=== PATIENT | male | born 1945 | race Caucasian/White ===

== ENCOUNTER 2020-01-22 06:40 | Inpatient (IN) | payer OTHER ==
[~2020-01-22] VITALS: Ht 177.8 cm; Wt 82.6 kg
[~2020-01-22 06:40] MED LIST: ASA81BEC PO; BACTRIM DS TAB1 EACH PO; CARVEDILOL12.5 MG PO; DOXYCYCLINE 10100 MG PO; FISH OIL 1,0001 EAC9 PO; FUROSEMIDE 40 M40 MG PO; GLUCOPHAGE1000 MG PO; IRON325 PO; LANTUS SUBQ; LIPITOR40 MG PO; MULTIVITAMINS PO; NEURONTIN100 MG PO; NORVASC5 MG PO; NOVOLOG100 UNIT/1 SUBQ; PLAVIX 75 MG TA75 MG PO; POTASSIUM CHLO10 ME1 PO; PROBIOTIC1 EAC7 PO
[2020-01-22 07:00] VITALS: BP 145/64
[2020-01-22 07:29] LABS: ABSOLUTE EOSINOPHILS 0.3 thou/uL (0.0-0.7); ABSOLUTE LYMPHOCYTES 1.3 thou/uL (0.8-5.3); ABSOLUTE MONOCYTES 1.1 thou/uL (0.0-1.2); ABSOLUTE NEUTROPHILS 6.9 thou/uL (1.6-8.1); BASOPHILS 0.1 %; EOSINOPHILS 3.4 %; HEMATOCRIT 32.9 % (42.0-52.0); HEMOGLOBIN 10.8 gm/dL (14.0-18.0); LYMPHOCYTES 13.9 %; MCHC 32.8 g/dL (28.0-37.0); MCV 85.5 fL (80.0-100.0); MONOCYTES 11.3 %; MPV 8.3 fl. (7.2-11.1); NUCLEATED RBCS 0 /100WBC; PLATELET COUNT* 307 thou/uL (150-400); POLYS 71.3 %; RBC 3.85 mil/uL (4.50-6.00); WBC 9.6 thou/uL (4.0-11.0)
[2020-01-22 07:37] LABS: CALCIUM 8.8 mg/dL (8.5-10.1)
--- NOTE | 2020-01-22 10:56 | OP ---
[facility] [address] [place] [address] OPERATIVE REPORT Name: SUKI LUBIN Samaria Room: [address] IN .R.#: [id number] Admission: 01/22/20 Attend Phys: Dulce Maria Fairchild Discharge: Date of : 43 Report #: [id number] THIS REPORT FOR: //name// cc: Jefry Lambert MD, John MD ~ THIS REPORT FOR: //name// CC: Jefry Dykes DATE OF SERVICE: 01/22/2020 PREOPERATIVE DIAGNOSIS: Chronic osteomyelitis, right foot in need a below-knee amputation. POSTOPERATIVE DIAGNOSIS: Chronic osteomyelitis, right foot in need a below-knee amputation. PROCEDURE: Right below-knee amputation. COMPLICATIONS: None. ESTIMATED BLOOD LOSS: 200 mL. SPECIMEN: Includes right below-knee amputation. SURGEON: Shayne Khan MD JEWELRY DESIGNER: PENG Dillon. COMPLICATIONS: None. INDICATIONS FOR PROCEDURE: The patient is a very pleasant 74-year-old white male who has diabetes. He has nonhealing diabetic foot ulcer of his right foot with now osteomyelitis of the calcaneus bone. His foot was no longer salvageable. We plan an urgent right below-knee amputation. Informed consent was obtained from the patient with risks including but not limited to bleeding, infection, need for further surgery, pain, , heart attack, stroke, higher amputation. The patient understood these risks and was agreeable to proceed. DESCRIPTION OF PROCEDURE: The patient was taken to the OR and placed in supine position. After adequate general anesthesia was initiated, his right leg was prepped and draped in usual sterile fashion. Timeout was performed. I created a transverse incision across the tibia just one handbreadth below the tibial tuberosity. Sharp and blunt dissections were carried down the tibia [place] [address] OPERATIVE REPORT Name: SUKI LUBIN Room: [address] IN [facility]#: [id number] Admission: 01/22/20 Attend Phys: Dulce Maria Fairchild Discharge: Date of : 43 Report #: [id number] These were divided with a bone saw. I then used an amputation knife to create a posterior flap with the calf muscle. Specimen was removed off the field. Bleeding was controlled with interrupted 2-0 silk suture as well as electrocautery. I irrigated with 1 liter of antibiotic saline. I closed the flap anteriorly using interrupted 2-0 Vicryl, 3-0 Vicryl and bakari for the skin. Incision was dressed with Prevena wound VAC. The patient was taken alert and awake to recovery room in good condition. All needle and instrument counts were correct. <ELECTRONICALLY SIGNED> By: Shayne Khan MD 01/22/20 1056 1004 101MD ca Gonzalez
[2020-01-22 11:30] VITALS: BP 133/48
--- NOTE | 2020-01-22 17:31 | EKG ---
[place] [address] ELECTROCARDIOGRAM REPORT Name: JESUSSUKI FONG Room: [address] IN [facility].#: [id number] Admission: 01/22/20 Attend Phys: Martin Dykes Discharge: Date of : 43 Date of Service: 01/22/20727 Report #: [id number] THIS REPORT FOR: //name// [facility] Test Date: 2020-01-22 Test Time: 07:28:18 Pat Name: SUKI LUBIN Department: Room: [facility] Gender: M Construction Checker: : 1945 Requested By: Shayne Khan Order Number: [id number] Sheila MD: Master Jaquez Measurements Intervals [place] Rate: 74 P: 38 OH: 147 QRS: 59 QRSD: 115 T: 261 QT: 363 QTc: 403 Interpretive Statements Sinus rhythm Nonspecific intraventricular conduction delay Early repolarization No previous ECG available for comparison Electronically Signed On 01-22-2020 17:29:30 CDT by Master Jaquez [email or web address] <ELECTRONICALLY SIGNED> By: Master Jaquez MD, [facility] 01/22/20 1729 7 7 Master Jaquez MD, FACC /EPI
--- NOTE | 2020-01-22 18:01 | NUR ---
PATIENT RESTING IN BED. RIGHT LEG ELEVATED ON PILLOW. DRESSING TO RIGHT LEG CLEAN, DRY AND INTACT WITH KNEE IMMOBILIZER ON. PATIENT HAS COMPLAINTS OF MINIMAL PAIN, HYDROCODONE GIVEN X 1. PATIENT HAS GOOD APPETITE. PATIENT DENIES ANY NEEDS AT THIS TIME. CALL LIGHT WITHIN REACH.
[2020-01-22 20:00] VITALS: BP 122/44
[2020-01-23 02:10] LABS: ABSOLUTE EOSINOPHILS 0.2 thou/uL (0.0-0.7); ABSOLUTE LYMPHOCYTES 1.2 thou/uL (0.8-5.3); ABSOLUTE MONOCYTES 1.1 thou/uL (0.0-1.2); ABSOLUTE NEUTROPHILS 8.3 thou/uL (1.6-8.1); BASOPHILS 0.4 %; EOSINOPHILS 1.9 %; HEMATOCRIT 26.4 % (42.0-52.0); LYMPHOCYTES 11.1 %; MCHC 32.6 g/dL (28.0-37.0); MCV 85.7 fL (80.0-100.0); MONOCYTES 9.8 %; MPV 8.2 fl. (7.2-11.1); NUCLEATED RBCS 0 /100WBC; PLATELET COUNT* 240 thou/uL (150-400); POLYS 76.8 %; RBC 3.08 mil/uL (4.50-6.00); RDW-CV 19.4 % (10.5-14.5); WBC 10.8 thou/uL (4.0-11.0)
[2020-01-23 02:15] LABS: HEMOGLOBIN 8.6 gm/dL (14.0-18.0)
[2020-01-23 02:20] VITALS: BP 146/52
[2020-01-23 02:21] LABS: CALCIUM 8.2 mg/dL (8.5-10.1); POTASSIUM 4.3 mmol/L (3.5-5.1)
--- NOTE | 2020-01-23 04:44 | NUR ---
PT A&O, VSS ON 1-2L O2 BY GA. MEDS GIVEN ORDERED. DRESSING C/D/I. PAIN MANAGED WITH NORCO. PT COULD NOT VOID, 821ML ON BLADDER SCAN. COHEN CATH PLACED. RT LEG ELEVATED ON PILLOW. KNEE IMMOBILIZER, WOUND VAC IN PLACE. HOURLY ROUNDINGS COMPLETED. WILL CONTINUE TO MONITOR.
[2020-01-23 06:00] VITALS: BP 135/46
[2020-01-23 07:30] VITALS: BP 138/51
[2020-01-23 16:00] VITALS: BP 116/58
--- NOTE | 2020-01-23 16:06 | NUR ---
PATIENT GIVEN PRN HYDROCODONE FOR RIGHT LEG PAIN, GOOD RELIEF NOTED. IV REMAINS SL, FLUSHING WITHOUT DIFFICULTY. PATIENT C/O BEING SWEATY THIS AFTERNOON AT APPROX 1400, BS AT THAT TIME 239 AND TEMP 99.3. PATIENT CHECKED ON AGAIN SOON AFTER AND TEMP NOTED TO BE 98.4 AND PATIENT STATED HE WAS NO LONGER SWEATY AND WAS FEELING FINE. INSULIN GIVEN WITH MEALS ORDERED. PT TO WORK WITH PATIENT TOMORROW. WILL ATTEMPT TO HELP PATIENT INTO CHAIR FOR DINNER. COHEN DRAINING LARGE AMOUNTS OF CLEAR YELLOW URINE. RIGHT LEG DRESSING D/I AND WOUND VAC REMAINS IN PLACE. REHAB CONSULT PLACED.
--- NOTE | 2020-01-23 16:36 | NUR ---
SW called pt to complete initial assessment, introduce self, and SW role. Pt alert, oriented, pleasant, talkative. Pt lives at home with his in a split entry home. Pt has hx of inpt rehab at [facility] and says he learned how to go up and down stairs on his bottom. pt has 2 wc, 2 walkers, crutches and a shower chair and grab bars. Pt planning for [facility]pt rehab at [facility] and would prefer inpt rehab at [facility]. Pt said he wasn't able to participate in therapies yet because of issues with catheterization but understands that he will work with therapies and will need to be evaluated to determine if pt is able to be accepted to inpt rehab. Pt has supportive family. SW to continue to follow to assist with safe dc planning.
[2020-01-23 20:00] VITALS: BP 133/59
[2020-01-24 03:00] VITALS: BP 108/59
--- NOTE | 2020-01-24 04:33 | NUR ---
PT A&O, ON RA. DRESSING TO RT STUMP INTACT. WOUND VAC IN PLACE. MEDS GIVEN ORDERED. PAIN WELL CONTROLLED WITH NORCO. PT SLEEPING THROUGH THE NIGHT. COHEN IN PLACE. HOURLY ROUNDINGS COMPLETED. WILL CONTINUE TO MONITOR.
[2020-01-24 07:30] VITALS: BP 122/64
[2020-01-24] MEDS ORDERED: HYDROCODON-ACE1 EAC7 PO (11:14)
--- NOTE | 2020-01-24 14:08 | PATH ---
[address] [address] PATHOLOGY RPT PROCEDURE Name: SUKI LUBIN Room: [address] IN M.R.#: [id number] Admission: 01/22/20 Date of : 43 Discharge: Report #: [id number] Path Case #: [id number] [facility] Accession Number: [id number] . 01 Material submitted: . leg - RIGHT BELOW THE KNEE LEG. Modifiers: right . 01 Clinical history: . Atherosclerosis right leg . 02 Diagnosis: Right below knee leg: - Benign right lower leg with evidence of prior transmetatarsal amputations of all five toes and non-specific ulceration at distal/plantar aspect with underlying bone showing osteomyelitis and reparative changes. - Severe calcifying arteriosclerosis of anterior and posterior tibial arteries. (WINNIE/db; 01/24/2020) LBQ 01/24/2020 1223 Local . 02 Electronically signed: . Jesus Manuel Rincon MD, Pathologist NPI- [id number] . 01 Gross description: . The specimen is received fresh in a red biohazard bag, labeled "Suki Lubin, right below knee leg". Received is a right [id number] amputation measuring 14.2 cm from heel to distal foot stump, 15.0 cm from heel to skin margin, 29.3 cm from heel to fibular bone margin, and 31.0 cm from heel to tibial bone margin. The skin and soft tissue margins appear viable. All five toes are absent due to a prior transmetatarsal amputation. At the distal aspect of the foot and continuing onto the plantar aspect, there is a well circumscribed, irregular in contour, partially crusted and yellow-shelton to pink-red lesion measuring 12.8 x 10.4 cm. Sectioning through the anterior and posterior tibial vasculatures reveals pinpoint to slightly patent lumens with a slight amount of calcification identified. The specimen is submitted representatively as follows: . A1 skin and soft tissue margin A2 medical field representative section of bone underlying pink-right aspect of lesion on plantar aspect of foot, following decalcification A3 additional medical field representative sections of lesion on dorsal/plantar aspect of foot A4 anterior and posterior tibial vasculatures. (CAA; 01/23/2020) QAC/QAC 01/24/2020 Critical access hospital Local . [address] [place] [address] PATHOLOGY RPT PROCEDURE Name: SUKI LUBIN Room: [address] IN ..#: [id number] Admission: 01/22/20 Date of : 43 Discharge: Report #: [id number] Path Case #: [id number] Pathologist provided ICD-10: I70.239, M86.8X6 . 02 CPT . 298532, [id number] Specimen Comment: A courtesy copy of this report has been sent to [phone], [phone] Specimen Comment: [id number], Specimen Comment: Report sent to ,DR MEI / DR CESPEDES Performed at: [address] [facility] [address], [place], [place] [id number] MD Jose Andrade MD Phone: [phone] Performed at: 02 [facility] [address], [place], [place] [id number] MD Jesus Manuel Rincon MD Phone: [phone]
--- NOTE | 2020-01-24 15:02 | NUR ---
Pt to dc to inpt rehab unit today.
[2020-01-24 15:23] LABS: ABSOLUTE EOSINOPHILS 0.1 thou/uL (0.0-0.7); ABSOLUTE LYMPHOCYTES 0.9 thou/uL (0.8-5.3); ABSOLUTE NEUTROPHILS 8.6 thou/uL (1.6-8.1); BASOPHILS 0.2 %; EOSINOPHILS 1.4 %; HEMATOCRIT 28.3 % (42.0-52.0); HEMOGLOBIN 9.4 gm/dL (14.0-18.0); LYMPHOCYTES 8.2 %; MCH 28.5 pg (26.0-34.0); MCHC 33.1 g/dL (28.0-37.0); MCV 86.1 fL (80.0-100.0); MONOCYTES 9.4 %; NUCLEATED RBCS 0 /100WBC; PLATELET COUNT* 277 thou/uL (150-400); POLYS 80.8 %; RBC 3.29 mil/uL (4.50-6.00); RDW-CV 19.1 % (10.5-14.5); WBC 10.7 thou/uL (4.0-11.0)
[2020-01-24 15:48] LABS: CALCIUM 8.5 mg/dL (8.5-10.1); CREATININE 1.1 mg/dL (0.6-1.3); POTASSIUM 3.9 mmol/L (3.5-5.1); TOTAL BILIRUBIN 0.3 mg/dL (<0.1-1.0); TOTAL PROTEIN 7.2 g/dL (6.4-8.2)
[2020-01-24 15:58] VITALS: BP 123/62
--- NOTE | 2020-01-24 16:03 | NUR ---
PATIENT UP TO CHAIR AM WITH PT, SAT IN RECLINER FOR APPROX 2 HOURS. PATIENT WORKED WITH PT AND OT THIS SHIFT. IMMOBILIZER IN PLACE TO RIGHT BKA, WOUND VAC IN PLACE WITH SMALL AMOUNT OF BLOODY DRAINAGE NOTED. VICKI LIND'Dulce Maria AT 0900, DR. STARR NOTIFIED THAT PATIENT HAD NOT VOIDED AT 1400, PER DR. STARR GIVE PATIENT MORE TIME TO VOID ON HIS OWN. IV REMAINS SL. HYDROCODONE GIVEN X 1 THIS SHIFT. PATIENT TO DISCHARGE UP TO REHAB THIS EVENING, PATIENT AWARE OF PLAN OF CARE.
--- NOTE | 2020-01-24 19:00 | NUR ---
PATIENT DISCHARGED TO REHAB AT THIS TIME. PATIENT TAKEN VIA WHEELCHAIR WITH ALL BELONGINGS. REPORT CALLED TO RENÉ GUADARRAMA.
== END 2020-01-24 19:01 | DRG 475 ==
LOC: M.ORTHSURG 06:40 → M.TBA 06:40 → M.PRE 07:20 → M.ORTHSURG 11:34 → M.PRE 14:25 → M.ORTHSURG 01-24 19:01
PROVIDERS: Internal Medicine; Physician Assistant Surgical; Surgery Vascular Surgery; ADMIT Internal Medicine
PROC: 0Y6H0Z2 Detachment at Right Lower Leg, Mid, Open Approach (ICD-10-PCS; principal; 2020-01-22)
DX: M86.671 Other chronic osteomyelitis, right ankle and foot (principal); R71.0 Precipitous drop in hematocrit; I25.10 Atherosclerotic heart disease of native coronary artery without angina pectoris; E78.5 Hyperlipidemia, unspecified; I10 Essential (primary) hypertension; E11.40 Type 2 diabetes mellitus with diabetic neuropathy, unspecified; Z96.1 Presence of intraocular lens; I73.9 Peripheral vascular disease, unspecified; Z79.2 Long term (current) use of antibiotics; Z79.82 Long term (current) use of aspirin; Z79.84 Long term (current) use of oral hypoglycemic drugs; Z79.899 Other long term (current) drug therapy; Z90.89 Acquired absence of other organs; Z89.429 Acquired absence of other toe(s), unspecified side; Z95.1 Presence of aortocoronary bypass graft; Z95.820 Peripheral vascular angioplasty status with implants and grafts; Z95.5 Presence of coronary angioplasty implant and graft; Z87.891 Personal history of nicotine dependence

== ENCOUNTER 2020-01-24 15:39 | Inpatient (IN) | payer OTHER ==
[~2020-01-24] VITALS: Ht 180.3 cm; Wt 82.8 kg
[~2020-01-24 15:39] MED LIST changes: +HYDROCODON-ACE1 EAC7 PO
[2020-01-24 19:46] VITALS: BP 140/53
--- NOTE | 2020-01-24 21:30 | NUR ---
PATIENT IN SEMI-NUNN'S TALKING ON HIS CELL. STATES RIGHT STUMP PAIN AT A "4". WOUND VAC TO RIGHT STUMP INTACT WITH RED DRAINAGE. HAS IMMOBILIZER TO RIGHT LEG IN PLACE. SNACK PROVIDED. ADMISSION REHAB TOOL COMPLETED. CALL LIGHT WITHIN REACH. A/O X 4. VERY TALKATAIVE. HARD OF HEARING BILATERALLY. PLEASANT. VOIDED PER URINAL EARLIER. ADMITTED WITH RIGHT BKA. ARRIVED FROM ORTHO UNIT AT 1855 PER REPORT. INITIALLY UPSET ABOUT PRN HYDROCODONE BEING REDUCED FROM 2 PILLS EVERY 4 HOURS TO ONE EVERY 6 HOURS. ASSURED PATIENT THAT WOULD CALL DOCTOR IF NEEDED IF PAIN WASN'T UNDER CONTROL.
[2020-01-25 04:52] LABS: HEMOGLOBIN 8.4 gm/dL (14.0-18.0); MCHC 32.5 g/dL (28.0-37.0); MCV 86.1 fL (80.0-100.0); MPV 8.3 fl. (7.2-11.1); RBC 3.02 mil/uL (4.50-6.00); RDW-CV 19.1 % (10.5-14.5)
[2020-01-25 05:01] LABS: CALCIUM 8.1 mg/dL (8.5-10.1); POTASSIUM 3.8 mmol/L (3.5-5.1)
--- NOTE | 2020-01-25 05:54 | NUR ---
GAVE PAIN MEDICATION AT 0350 FOR COMPLAINT OF RIGHT STUMP PAIN RATED "2" WITH RELIEF. USED URINAL DURING THE NIGHT. HOURLY ROUNDING IN PROGRESS.
[2020-01-25 08:35] VITALS: BP 142/51
--- NOTE | 2020-01-25 18:22 | NUR ---
PT A&Ox4. VITALS STABLE. TOLERATING DIET. PAIN CONTROLLED WITH NORCO. DENIED N/V. UP WITH 1 USING GAIT BELT AND WALKER. DRESSING C/D/I. WOUND VAC IN PLACE. IMMOBILIZER IN PLACE. FALL PRECAUTIONS IN PLACE. CALL LIGHT WITHIN REACH. WILL CONTINUE TO MONITOR.
[2020-01-25 20:14] VITALS: BP 116/93
--- NOTE | 2020-01-26 06:37 | NUR ---
PATIENT SLEPT MOST OF THE NIGHT. PATIENT WAS GIVEN PAIN MEDICINE ONCE THIS SHIFT. IMOBILIZER REMAINS IN PLACE TO R STUMP WITH PROVENA WOUND VAC IN PLACE. WILL CONTINUE TO MONITOR.
[2020-01-26 07:30] VITALS: BP 125/53
--- NOTE | 2020-01-26 17:26 | NUR ---
PT A&Ox4. VITALS STABLE. DRESSING C/D/I. WOUND VAC PATENT AND IN PLACE. PAIN CONTROLLED WITH NORCO. TOLERATING DIET. UP WITH STB ASSIST. FALL PRECAUTIONS IN PLACE. CALL LIGHT WITHIN REACH. WILL CONTINUE TO MONITOR.
[2020-01-26 19:00] VITALS: BP 136/49
--- NOTE | 2020-01-26 20:35 | NUR ---
SITTING UP IN BED. IN GOOD SPIRITS. AMBULATED TO THE BATHROOM WITH SBA, GAITBELT, WALKER. HOPS ON LEFT LEG. DOES OWN CLOTHING ADJUSTMENTS AND ROSITA CARE. DECLINED OFFER OF A SNACK. CALL LIGHT AND URINAL WITHIN REACH.
--- NOTE | 2020-01-27 04:59 | NUR ---
PAIN MEDICINE GIVEN FOR COMPLAINT OF RIGHT LEG PAIN WITH RELIEF. ONLY 42ML RESIDUAL AFTER VOID AT MIDNIGHT. HOURLY ROUNDING IN PROGRESS.
[2020-01-27 07:55] VITALS: BP 128/52
--- NOTE | 2020-01-27 13:15 | NUR ---
Nutrition: Pt admited to Rehab with [facility] [place]. Wt: 182#. Consult stated he left his dentures t home. Per notes and per RN, he is eating adequately. CHO controlled diet. Alb 3, BG 125-272. Meds noted, on insulin. H/o DM, HTN, PVD, CAD. GOALS: tight BG control, >75% po intake. Appears at mild risk at this time.
--- NOTE | 2020-01-27 16:52 | NUR ---
PATIENT VERBALIZED UNDERSTANDING OF DISCHARGE INSTRUCTIONS. DENIES NEED FOR PAIN MEDICATION. PACEMAKER INCISION HEALED. UP WITH STAND BY ASSIST GAIT BELT AND WALKER TO REMAIN 50%WIGHTBEARING TO LEFT LEG. HAS BRUIT AND THRILL AT LEFT ARM FISTULA SITE. WRITTEN RX GIVEN TO PATIENT. D/C VIA W/C TO FAMILY CAR.
--- NOTE | 2020-01-27 17:30 | NUR ---
Initial rehab assessment: Pt lives at home with in a split entry home. Pt has supportive family and friends. Pt has hx of ARU at [facility]. Pt has DME already at home: 2 wcs, 2 RWs, crutches, grab bars, shower chair. SW to continue to follow to assist with safe dc planning.
[2020-01-27 19:15] VITALS: BP 155/53
--- NOTE | 2020-01-27 20:19 | NUR ---
ALERT AND ORIENTED X4. UP WITH 1 ASSIST, GAIT BELT AND WALKER. USES PO PAIN MEDICATION TO HELP KEEP PAIN IN RIGHT BKA UNDER CONTROL. HAS PROVENA WOUND VAC IN PLACE AT THIS TIME TO RIGHT BKA. DRESSING DRY AND INTACT. USES IMMOBILZER TO RIGHT STUMP. USES CALL LIGHT WHEN NEEDING ASSIST. FALL PRECAUTIONS IN PLACE.
--- NOTE | 2020-01-28 05:10 | NUR ---
ASSUMED CARE AT 1920. ALERT AND ORIENTED PLEASANT. C/O RIGHT STUMP PAIN. PAIN MEDS GIVEN PER PT REQUEST. DRESSING AND WOUND VAC TO RIGHT STUMP. IMMOBILIZER IN PLACE. MIN ASSIST WITH GAIT BELT AND WALKER. UP TO BR. AT 2100, PVR 370 CC BUT PT REFUSED STRAIGHT CATH. PVR RECHECK AT 2400 WAS 146 CC. SLEPT SOME. CALL LIGHT IN REACH AND BED ALARM ON.
[2020-01-28 08:00] VITALS: BP 145/61
--- NOTE | 2020-01-28 16:02 | NUR ---
ASSUMMED CARE OF PT AT 0730, PT ALERT AND ORIENTED, PT TRANSFERS WITH ASSIST OF ONE WITH A STAND PIVOT, HOPS INTO BATHROOM WITH GB AND WALKER, VOIDS PER TOILET, BLADDER SCANNED AFTER VOID WITH 10CC RESIDUAL, NO BM THIS SHIFT, STATES HAS PAIN IN STUMP OF "1" BUT STATES HE NEEDS THE STRONG PAIN PILL BECAUSE HE IS AFRAID OF ANY PAIN, EDUCATED PT ON USE OF NARCOTICS BUT DOES NOT WANT TYLENOL, HYDROCODONE GIVEN X 2 THIS SHIFT, NO BM X 3 DAYS, MEDS GIVEN, PROVENA WOUND VAC INTACT WITH SEROUS SANGUINOUS DRAINAGE, MEPILEX CHANGED TO WRIST SKIN TEAR, DRESSING AND IMMOBILIZER INTACT TO RIGHT STUMP, PARTICIPATED IN ALL THERAPIES, HOURLY ROUNDING COMPLETED, ASSESSMENT COMPLETE, WILL CONTINUE TO MONITOR.
[2020-01-28 19:00] VITALS: BP 124/44
--- NOTE | 2020-01-29 06:39 | NUR ---
ASSUMED CARES AT 1920. ALERT AND ORIENTED. PLEASANT. NORCO GIVEN FOR RIGHT STUMP PAIN. WOUND VAC AND IMMOBILIZER TO RLE. MIN ASSIST WITH GAIT BELT AND WALKER. UP TO BATHROOM. MEPILEX TO RIGHT FOREARM CHANGED. WAS A SKIN TEAR FROM HOME. PIC TAKEN. SLEPT WELL. CALL LIGHT IN REACH AND BED ALARM ON.
[2020-01-29 08:31] VITALS: BP 158/86
--- NOTE | 2020-01-29 08:47 | NUR ---
LATE ENTRY FOR 01/28/20 AT 1130-PT.CALLED THIS CM. HE WOULD LIKE AT 16 IN.WC ORDERED FOR HIM. HE HAS 2 OTHER WC'S AT HOME BUT THEY ARE TOO BIG TO GO THROUGH HIS DOORWAYS. HE WOULD LIKE REMOVALBLE ARM RESTS AND LEG RESTS. WILL NEED TO HAVE WRITE PRESCRIPTION FOR WC. NOTIFIED NURSING. EXPLAINED TO PT.HIS INSURANCE CONTRACTS WITH [employer]. HE IS FINE WITH USING Lydia.
--- NOTE | 2020-01-29 15:43 | NUR ---
ASSUMMED CARE OF PT AT 0730, PT ALERT AND ORIENTED, PT TRANSFERS WITH SBA, GB WALKER, PROVENA WD VAC DCD AND WD REDRESSED PER JOHNNIE FROM VASCULAR, C/O PAIN, MEDICATED PER ORDER, TAKING FOOD AND FLUIDS WELL, GIG TENDER CONSULTED FOR STUMP FARMWORKER DAIRY AND WILL SEE PT ON 01/29 AT 11 AM. MEPILEX INTACT TO RIGHT FOREARM, LARGE BM X 1, PARTICIPATED IN ALL THERAPIES, HOURLY ROUNDING COMPLETED, ASSESSMENT COMPLETE, WILL CONTINUE TO MONITOR.
--- NOTE | 2020-01-29 17:26 | NUR ---
SW called and spoke with pt to review team conference summary and plan for pt to remain on rehab unit to continue therapies at least another week with team to reasses pt length of stay during team conference next Monday. Pt in agreement with plan and says that she will call pt and attempt to remind pt to "behave" and compromise with therapy to try new ways to be safe and progress in therapy. SW to continue to follow to assist with safe dc planning.
[2020-01-29 20:22] VITALS: BP 141/48
--- NOTE | 2020-01-30 01:22 | NUR ---
ASSUMED CARE @ 1934-01/28-MON.SITS INN BED ON PHONE.IMMOBILIZER IN PLACE RIGHT LE.PRN COLACE GIVEN ORAL @ 2114.SEE PAIN MANAGEMENT @ 2114.GAVE SELF INSULIN INJECTION @ 2119.TURNS SELF @ NIGHT.SBA FOR ALL TRANSFERS & TOILETING.NWB RIGHT LE.ON HOURLY ROUNDS.CLOTH SHRINKER DOING ODD HOUR ROUNDS.
--- NOTE | 2020-01-30 05:13 | NUR ---
SLEPT LATE @ 0000-01/29-.SLEEPING GOOD ALL NIGHT.TOOK ALL VANILLA PUDDING & GLUCERNA EREN DRINK HS SNACKS.BRP W/ SBA X3.BLADDER SCAN @ 0205 AFTER VOIDING-0 ML.
[2020-01-30 08:00] VITALS: BP 144/61
--- NOTE | 2020-01-30 11:52 | NUR ---
[facility] CAME AT 11AM WITH STUMP MANAGING PARTNER [employer] MARKETING [place]. PATIENT STATED HE DID NOT WANT TO USE [facility] DUE TO ISSUES IN THE PAST. CALL TO JOHNNIE CHAVES NP FOR [facility]. SHE WROTE THE ORDER FOR [facility] ([facility]), BUT STATED THE NURSE SAID [facility] ONLY WORKS WITH [facility]. LEFT MESSAGE WITH LAKESHIA NELSON TO RETURN CALL TO CLARIFY.
--- NOTE | 2020-01-30 18:52 | NUR ---
PATIENT A&OX4. VSS. LUNG SOUNDS CLEAR. PATIENT GIVEN NORCO THIS AM TO PREMEDICATE FOR THERAPY. PATIENT PARTICIPATED IN ALL THERAPIES TODAY. LISSETH CAME TODAY AT 1100 FOR STUMP SUSTAINABILITY PURCHASING AGENT. PATIENT REFUSED OPERATIONAL TRAINER, STATED HE USES [facility]. CALL MADE TO [facility] AND FAXED ORDER TO BERNY. BERNY STATED THEY WOULD BE HERE SOME TIME 01/29 OR 01/30. PATIENT NOT GIVEN INSULIN FOR SUPPER D/T BLOOD SUGAR BEING 89. PATIENT IN CHAIR. CALL LIGHT IN REACH
[2020-01-30 19:48] VITALS: BP 134/55
--- NOTE | 2020-01-30 21:10 | NUR ---
RESTING QUIETLY IN BED AND TALKING ON PHONE AND WATCHING TV. PAIN MEDICATION GIVEN FOR COMPLAINT OF RIGHT STUMP PAIN RATED "1". HAS STUMP URINALYSIS TECHNICIAN AND AN IMMOBILIZER ON RIGHT STUMP. CALL LIGHT WITHIN REACH. TAKES MEDICATION WHOLE WITH WATER.
--- NOTE | 2020-01-31 05:52 | NUR ---
UP X ONE DURING THE NIGHT TO THE BATHROOM TO VOID AND HAD A LARGE BM. NO FURTHER COMPLAINT OF PAIN. HOURLY ROUNDING IN PROGRESS.
[2020-01-31 09:00] VITALS: BP 144/50
--- NOTE | 2020-01-31 18:53 | NUR ---
ALERT AND ORIENTED X4. UP WITH 1 ASSIST, GAIT BELT AND WALKER. HOPS ON LEFT LEFT WHEN AMBULATING. WEARS IMMOBILIZER TO RIGHT BKA. STUMP RAINBOW TROUT FARM MANAGER IN PLACE UNDER IMMOBILIZER. PVR CHECKED AND 7ML. TOOK PO PAIN MEDICATION THIS AM AND HELPFUL. USES CALL LIGHT WHEN NEEDING ASSIST. FALL PRECATIONS IN PLACE.
[2020-01-31 20:00] VITALS: BP 141/51
--- NOTE | 2020-02-01 01:25 | NUR ---
ASSUMED CARE @ 1911-01/30-MONDAY.SITS IN W/C IN ROOM W/ RIGHT STUMP UP W/ IMMOBILIZER ON RIGHT LE.CHAIR ALARM PUT ON @ 1911.REQUESTED PRN COLACE & GIVEN @ 2023.SEE PAIN MANAGEMENT @ 2139.HOB UP IN BED.SIDERAILS X4 UP.WANTS ALL LIGHTS OFF & DOOR CLOSED @ NIGHT.TURNS SELF @ NIGHT.NWB RIGHT LE.TRANSFERS, TOILETING & AMBULATION W/ WALKER & GB W/ SBA.GAIT-STEADY.ON HOURLY ROUNDS. E COMMERCE WEB DEVELOPER DOING ODD HOUR ROUNDS.
--- NOTE | 2020-02-01 05:11 | NUR ---
SLEPT LATE @ 0000-01/31-SAT & SLEEPING GOOD ALL NIGHT.TOOK ALL VANILLA PUDDING & EREN.GLUCERNA HS SNACKS.BRP W/ SBA X3 DURING NIGHT.
[2020-02-01 08:26] VITALS: BP 146/56
--- NOTE | 2020-02-01 17:14 | NUR ---
ALERT AND ORIENTED X4. UP WITH 1 ASSIST, GAIT BELT AND WALKER AND HOPS TO BATHROOM. RIGHT BKA INCISION WITH VALARIE APROXIMATED WELL. DRESSING CHANGED WITH NO S/S OF INFECTION. STUMP OBJECT ORIENTED PROGRAMMER IN PLACE OVER RIGHT BKA AND COVERED WITH IMMOBILIZER. USES PO PAIN TO HELP WITH PAIN. USES CALL LIGHT WHEN NEEDING ASSIST. FALL PRECAUTIONS IN PLACE. BED ALARM AND CHAIR ALARM USES.
[2020-02-01 20:00] VITALS: BP 149/62
--- NOTE | 2020-02-02 05:15 | NUR ---
ASSUMED CARES AT 1920. ALERT AND ORIENTED PLEASANT. RIGHT BKA WITH IMMOBILIZER IN PLACE. PAIN MED GIVEN PER PT REQUEST. SBA WITH GAIT BELT AND WALKER. UP TO BATHROOM X 2. SLEPT MOST OF THE NIGHT. CALL LIGHT IN REACH AND BED ALARM ON.
[2020-02-02 08:26] VITALS: BP 135/52
--- NOTE | 2020-02-02 18:04 | NUR ---
ALERT AND ORIENTED X4. UP WITH STAND BY ASSIST, GAIT BELT AND WALKER TO HOP TO BATHROOM. CONTINENT OF BOWEL AND BLADDER. DRESSING REMAINS DRY AND INTACT UNDER STUMP INTERNET APPLICATION DEVELOPER AND IMMOBILIZER ON RIGHT BKA. FALL PRECAUTIONS IN PLACE, BED ALARM AND CHAIR ALARM USED. USES CALL LIGHT WITHIN REACH WHEN NEEDING ASSIST.
[2020-02-02 20:00] VITALS: BP 130/49
--- NOTE | 2020-02-03 05:10 | NUR ---
ASSUMED CARES AT 1920. ALERT AND ORIENTED. PLEASANT. RIGHT BKA. IMMOBILIZER TO RLE. SBA WITH GAIT BELT AND WALKER. UP TO BATHROOM. DOES OWN CARES. HS SNACK GIVEN. NO ISSUES OVERNIGHT. CALL LIGHT IN REACH AND BED ALARM ON.
[2020-02-03 07:52] VITALS: BP 144/57
--- NOTE | 2020-02-03 18:53 | NUR ---
ALERT AND ORIENTED X4. UP WITH STAND BY ASSIST, GAIT BELT AND WALKER. PATIENT HOPS ON LEFT LEG WITH TRANSFERS DUE TO HAS RIGHT BKA. DRESSING CHANGED BY DR TODAY ON STUMP. STUMP OUTSIDE SALES ADVERTISING EXECUTIVE IN PLACE UNDER IMMOBILIZER ON RIGHT STUMP. PO PAIN MEDICATION GIVEN AND HELPFUL. USES CALL LIGHT WHEN NEEDING ASSIST. FALL PRECAUTIONS IN PLACE, BED ALARM AND CHAIR ALARM USED.
[2020-02-03 19:15] VITALS: BP 112/52
--- NOTE | 2020-02-04 05:13 | NUR ---
ASSUMED CARES AT 1920. ALERT AND ORIENTED. PLEASANT. RIGHT BKA. SBA WITH GAIT BELT AND WALKER. UP TO BATHROOM X 3. DOES OWN CARES. SLEPT WELL. CALL LIGHT IN REACH AND BED ALARM ON.
[2020-02-04 08:14] VITALS: BP 124/73
--- NOTE | 2020-02-04 16:14 | NUR ---
SW called pt room to try to follow up with pt about pending wc order and pt did not answer. SW called pt who did not answer and voicemail box was not set up. SW to continue to follow and assist with safe dc planning. Team conference tomorrow.
--- NOTE | 2020-02-04 16:30 | NUR ---
PATIENT UP IN WHEELCHAIR THIS SHIFT. UP TO BATHROOM WITH SBA AND USE OF GAIT BELT AND WALKER. HYDROCODONE GIVEN X 1 THIS AM PRIOR TO THERAPY. PATIENTS BROUGHT PATIENT MORE CLOTHES AND SENT DIRTY CLOTHES HOME. INSULIN GIVEN WITH MEALS ORDERED, GOOD APPETITE.
[2020-02-04 19:15] VITALS: BP 119/50
[2020-02-05 08:44] VITALS: BP 148/61
--- NOTE | 2020-02-05 17:09 | NUR ---
Team conference held today. Plan for pt to dc home with on Monday. Team recommending family training prior to dc. SW called pt with no answer so SW left a detailed message about trying to schedule family training and the dc plan. WC to be ordered by dc and services to follow at dc. SW to continue to follow to assist with finalizing safe dc plan.
--- NOTE | 2020-02-05 18:35 | NUR ---
ASSESSMENT COMPLETED DOCUMENTED THIS MORNING. PATIENT DEMONSTRATES STABILITY WITH USE OF WALKER FROM BED TO BR, BM X1. ALERT AND PLEASANT, INDEP WITH INSULIN [place] [id number].
[2020-02-05 19:00] VITALS: BP 157/44
--- NOTE | 2020-02-06 01:16 | NUR ---
ASSUMED CARE @ -MON.SITS IN W/C IN ROOM W/ RIGHT LE UP & IMMOBILIZER ON RIGHT LE.STUMP DOG RAISER IN PLACE.CHAIR ALARM ON @ 1921.HOB UP.SIDERAILS X3 UP.WANTS ALL LIGHTS OFF & DOOR CLOSED @ NIGHT.NWB RIGHT LE OBSERVED.TURNS SELF @ NIGHT.SEE PAIN MANAGEMENT @ 2100.ON HOURLY ROUNDS.PHARMACY TECHNICIAN TRAINEE DOING ODD HOUR ROUNDS.
--- NOTE | 2020-02-06 05:05 | NUR ---
SLEPT LATE @ 0000-02/05- & SLEEPING GOOD ALL NIGHT.BRP W/ GB & VIJI W/ KRISTYNA X3.TOOK ALL VANILLA PUDDING & EREN.GLUCERNA HS SNACKS.
[2020-02-06 08:00] VITALS: BP 131/62
--- NOTE | 2020-02-06 16:38 | NUR ---
LIZY called and spoke with pt and scheduled family training for tomorrow at 1 pm. WC ordered through [employer] and LIZY called and spoke with pt about pt options and pt to receive wc tomorrow. Pt to determine with Drew when he sees the wc whether or not he wants to accept wc or buy one that he saw through [facility]. SW to arrange HH services at [facility] with pt preference and in network with insurance.
--- NOTE | 2020-02-06 18:06 | NUR ---
ASSESSMENT COMPLETED DOCUMENTED THIS MORNING. PATIENT PARTICIPATING WITH THERAPY AND PROGRESSING WELL, ANTICIPATING DC TOMORROW TO HOME WITH HOME HEALTH. HYDROCODONE 5/325 TAB GIVEN AT 0920 THIS MORNING FOR C/O RLE PAIN. NO ISSUES OR CHANGES IN CONDITION.
[2020-02-06 19:40] VITALS: BP 127/55
--- NOTE | 2020-02-07 06:22 | NUR ---
ASSUMED CARES AT 1920. ALERT AND ORIENTED. PLEASANT. IMMOBILIZER TO RIGHT LEG. SBA WITH GAIT BELT AND WALKER. UP TO BATHROOM X3. HS SNACK GIVEN. SLEPT WELL. CALL LIGHT IN REACH AND BED ALARM ON.
[2020-02-07 09:12] VITALS: BP 125/56
[2020-02-07] MEDS ORDERED: FLOMAX0.4 MG PO (11:04)
[2020-02-07 11:06] VITALS: BP 125/56
[2020-02-07 13:13] VITALS: BP 125/56
--- NOTE | 2020-02-07 13:20 | NUR ---
Pt to dc home with today. Pt preference for [facility] services to follow, SW faxed referral and orders to [facility]. SW discussed wc order through [employer] to be delivered prior to pt dc. Family training with pt prior to dc today then pt to provide pt ride home.
--- NOTE | 2020-02-07 16:52 | NUR ---
PATIENT A&OX4. VSS. LSCTA. HRR. PATIENT UP TO BATHROOM WITH WALKER. DRESSING CHANGED BY JOHNNIE CHAVES NP FROM [facility]. PATIENT AND SPOUSE EDUCATED ON DISCHARGE INSTRUCTIONS AND MEDICATIONS AND SHOW KNOWLEDGE AND UNDERSTANDING. PATIENT REFUSED [facility] AND REQUESTED [facility]. [facility] TO CHANGE [facility] FOR PATIENT. WHEELCHAIR DROPPED OFF AT HOSPITAL FROM DME. PATIENT DISCHARGED.
== END 2020-02-07 14:00 | disposition home health service (06) | DRG 638 ==
LOC: M.REH 15:39
PROVIDERS: ADMIT Physical Medicine & Rehabilitation
DX: E11.69 Type 2 diabetes mellitus with other specified complication (principal); M86.68 Other chronic osteomyelitis, other site; E11.51 Type 2 diabetes mellitus with diabetic peripheral angiopathy without gangrene; I25.10 Atherosclerotic heart disease of native coronary artery without angina pectoris; I10 Essential (primary) hypertension; D50.9 Iron deficiency anemia, unspecified; D63.8 Anemia in other chronic diseases classified elsewhere; N40.0 Benign prostatic hyperplasia without lower urinary tract symptoms; Z89.511 Acquired absence of right leg below knee; Z95.1 Presence of aortocoronary bypass graft; E78.5 Hyperlipidemia, unspecified; Z79.899 Other long term (current) drug therapy